=== PATIENT | female | born 1940 | race Caucasian/White ===

== ENCOUNTER 2016-07-11 15:07 | Emergency (ER) | payer MEDICARE ==
[2016-07-11 15:19] VITALS: BP 126/54
--- NOTE | 2016-07-11 15:42 | UC ---
UC General HPI - HPI Summary HPI Summary: awoke in the night at 03:00 with vomiting, followed by episodes of watery diarrhea, with no obvious blood. Had repeated episodes of emesis, from foodstuff to fluid, no blood. Some pain with vomiting only; has no persistent abdominal pain. Last emesis was 1.5 hours ago, has been taking sips of fluid and hot tea all day. Has voided a number of times today. Ate dinner at a [employer] yesterday, and suspects that this is triggered by that. No infectious contacts. - History of Current Complaint Chief Complaint: UCGI Stated Complaint: VOMITING,DIARRHEA Time Seen by Provider: 07/11/16 15:31 Hx Obtained From: Patient, Family/Grader Marker - here with her neighbor Damari. Onset/Duration: Sudden Onset, Lasting Hours - 14 Timing: Intermittent Episodes Lasting: - minutes Onset Severity: Moderate Current Severity: Moderate Associated Signs & Symptoms: Positive: Diarrhea, Vomiting - Allergy/Home Medications Allergies/Adverse Reactions: Allergies Allergy/AdvReac Type Severity Reaction Status Date / Time Adhesive Tape Allergy Rash Verified 07/11/16 15:20 Aspirin AdvReac Vomiting Verified 07/11/16 15:20 Home Medications: Home Medications Coenzyme Q10 (Ubidecarenone) [Co Q-10] 200 mg PO DAILY 07/11/16 [History Confirmed 07/11/16] LoraTADine TAB(NF) [Claritin 10 MG TAB(NF)] 10 mg PO DAILY 07/11/16 [History Confirmed 07/11/16] Omeprazole CAP* [Prilosec CAP* 20 MG] 1 tab DAILY 07/11/16 [History Confirmed ] PMH/Surg Hx/FS Hx/Imm Hx Cardiovascular History Of: Reports: Cardiac Disorders - CARDIAC CATH, [place] Denies: Hypertension Respiratory History Of: Reports: COPD - Surgical History Surgical History: Yes Surgery Procedure, Year, and Place: T&A. APPY. BLADDER REPAIR X 2. B/L CARARACT SX. LEFT TOTAL HIP 2012 - Family History Known Family History: Positive: Other - living sister has had a stroke. - Social History Occupation: Retired Lives: Alone - of cancer in 2016 Alcohol Use: None Substance Use Type: None Smoking Status (MU): Former Smoker Type: Cigarettes Have You Smoked in the Last Year: No When Did the Patient Quit Smoking/Using Tobacco: 2 YRS AGO - Immunization History Most Recent Influenza Vaccination: [id number] Review of Systems Constitutional: Fatigue Skin: Negative Eyes: Negative ENT: Negative Respiratory: Negative Cardiovascular: Other - history of CAD, no chest pain or dyspnea. 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 Mobility is impaired. Neurological: Weakness Psychological: Negative All Other Systems Reviewed And Are Negative: Yes Physical Exam Triage Information Reviewed: Yes Appearance: Ill-Appearing - looks unwell, some dry heaving, but alert. Blood pressure is ok, not tachycardic. Vital Signs: Initial Vital Signs Temp 99.1 F 07/11/16 15:13 Pulse 95 07/11/16 15:13 Resp 17 07/11/16 15:13 BP 126/54 07/11/16 15:13 Pulse Ox 96 07/11/16 15:13 Vital Signs Reviewed: Yes Eyes: Positive: Conjunctiva Clear ENT: Positive: Pharynx normal Dental: Positive: Other: - upper denture Neck: Positive: Supple, Nontender, No Lymphadenopathy Respiratory: Positive: Chest non-tender, Lungs clear, Normal breath sounds Cardiovascular: Positive: RRR, No Murmur, Pulses Normal Abdomen Description: Positive: Nontender, Soft, Distended - mildly distended. Bowel Sounds: Positive: Present Musculoskeletal: Positive: Other: - antalgic gait, made it to exam table with light assistance. Neurological: Positive: Alert, Muscle Tone Normal Psychological Exam: Other - spirits low Skin Exam: Normal Re-Evaluation - Re-Evaluation First Eval Re-Evaluation Time: 16:15 Change: Improved - nausea decreased Second Eval Re-Evaluation Time: 16:45 Change: Improved - tolerated 8 ounces of gingerale without vomiting. Course/Dx - Course Course Of Treatment: gastroenteritis--will repeat zofran if needed, and will take clear fluids to advanced diet. - Differential Dx - Multi-Symptom Provider Diagnoses: gastroenteritis. Discharge - Discharge Plan Condition: Stable Disposition: HOME Patient Education Materials: Gastroenteritis (ED), Clear Liquid Diet (ED), Low Fiber Diet (ED) Additional Instructions: You have a dose of zofran to use if needed for recurrent nausea. Ensure regular intake of fluids, and advance from a clear liquid to soft diet as tolerated. You might try to take your evening medications.
[2016-07-11] MEDS ORDERED: Ondansetron ODT TAB* 4 MG PO ONE ×2 (15:51→17:03)
[2016-07-11] MEDS ORDERED: Ondansetron TAB* 4 MG PO ONE (16:54)
== END 2016-07-11 17:22 | disposition home or self-care (01) ==
LOC: UCCORT 15:07
DX: K52.9 Noninfective gastroenteritis and colitis, unspecified (principal); I25.2 Old myocardial infarction; J44.9 Chronic obstructive pulmonary disease, unspecified; Z96.642 Presence of left artificial hip joint; Z98.42 Cataract extraction status, left eye; Z98.41 Cataract extraction status, right eye; Z88.6 Allergy status to analgesic agent; Z91.040 Latex allergy status; Z87.891 Personal history of nicotine dependence
CPT/HCPCS: 99212; A9270-GY; G0463